=== PATIENT | male | born 1960 | race Caucasian/White ===

== ENCOUNTER → 2021-06-23 09:25 | Outpatient (BNVA) | payer OTHER, SELFPAY | PROVIDERS: Family Provider Family Medicine; PCP Registered Nurse; Visit Provider Nurse Practitioner Family | DX: R31.9 Hematuria, unspecified (principal); R19.7 Diarrhea, unspecified; Z12.5 Encounter for screening for malignant neoplasm of prostate | CPT/HCPCS: 81000; G0103 ==

== ENCOUNTER 2021-07-04 15:15 | Outpatient (CLI) | payer OTHER, SELFPAY ==
--- NOTE | 2021-07-04 15:45 | US_ITS ---
WS: [id number] RENAL ULTRASOUND HISTORY: R31.9 - Hematuria, unspecified COMPARISON: None available. TECHNIQUE: 2-D and color Doppler imaging of the kidney submitted. Right kidney: 12.6 cm x 5.2 cm x 5.9 cm. Normal size kidney with no hydronephrosis. Calcification in the lower pole measures 1.0 x 1.0 x 1.0 c m. No solid mass or cyst. Left kidney: 12.9 cm x 7.5 cm x 5.4 cm. Normal echogenicity with no hydronephrosis or mass. Aorta: Not visualized. Urinary Bladder: Normally distended bladder. Prostate gland is slightly enlarged measuring 4.5 x 5.6 x 4.0 cm. No free fluid in the pelvis. US/US renal BI* [id number] IMPRESSION: 1. Nonobstructing 1.0 cm renal calcification lower pole RIGHT kidney. 2. No hydronephrosis or solid mass.
== END 2021-07-04 15:16 | disposition home or self-care (01) ==
LOC: US 15:19
PROVIDERS: PCP Nurse Practitioner Family; Visit Provider Nurse Practitioner Family
DX: R31.9 Hematuria, unspecified (principal); N28.89 Other specified disorders of kidney and ureter
CPT/HCPCS: 76770

== ENCOUNTER → 2021-07-18 10:06 | Outpatient (BNVA) | payer OTHER, SELFPAY | PROVIDERS: PCP Nurse Practitioner Family; Visit Provider Nurse Practitioner Family | DX: R39.9 Unspecified symptoms and signs involving the genitourinary system (principal); Z02.4 Encounter for examination for driving license | CPT/HCPCS: 81000 ==

== ENCOUNTER → 2021-11-14 08:06 | Outpatient (BNVA) | payer OTHER, SELFPAY | PROVIDERS: PCP Nurse Practitioner Family; Visit Provider Nurse Practitioner Family | DX: E11.42 Type 2 diabetes mellitus with diabetic polyneuropathy (principal) | CPT/HCPCS: 80053; 80061; 82043; 83036; 83721 ==

== ENCOUNTER → 2021-12-04 09:19 | Outpatient (BNVA) | payer OTHER, SELFPAY | PROVIDERS: PCP Nurse Practitioner Family; Visit Provider Nurse Practitioner Family | DX: Z51.81 Encounter for therapeutic drug level monitoring (principal) | CPT/HCPCS: 80076 ==

== ENCOUNTER → 2022-02-07 08:39 | Outpatient (BNVA) | payer OTHER, SELFPAY | PROVIDERS: PCP Nurse Practitioner Family; Visit Provider Nurse Practitioner Family | DX: I10 Essential (primary) hypertension (principal); E11.42 Type 2 diabetes mellitus with diabetic polyneuropathy | CPT/HCPCS: 80053; 83036 ==

== ENCOUNTER → 2022-03-27 11:29 | Outpatient (BNVA) | payer OTHER, SELFPAY | PROVIDERS: PCP Nurse Practitioner Family; Visit Provider Podiatrist Foot & Ankle Surgery | DX: L98.9 Disorder of the skin and subcutaneous tissue, unspecified (principal) | CPT/HCPCS: 88304 ==

== ENCOUNTER → 2022-05-14 08:38 | Outpatient (BNVA) | payer OTHER, SELFPAY | PROVIDERS: PCP Nurse Practitioner Family; Visit Provider Nurse Practitioner Family | DX: E78.5 Hyperlipidemia, unspecified (principal); E11.9 Type 2 diabetes mellitus without complications | CPT/HCPCS: 80053; 80061; 83036 ==

== ENCOUNTER 2022-06-14 10:24 | Outpatient (CLI) | payer BC, SELFPAY ==
--- NOTE | 2022-06-14 10:43 | XR_ITS ---
WS: [email or web address] Chest 2 views, 06/14/2022 Clinical Data: R07.81 - Pleurodynia Comparison: None. Findings: No nodules, masses or effusions are seen. The heart is normal. The pulmonary vascularity is not increased. No pneumonia or pneumothorax is seen. XR/XR chest 2V* [id number] Impression: Negative chest.
== END 2022-06-14 10:25 | disposition home or self-care (01) ==
PROVIDERS: PCP Nurse Practitioner Family; Visit Provider Nurse Practitioner Family
DX: R07.81 Pleurodynia (principal); M54.9 Dorsalgia, unspecified
CPT/HCPCS: 71046; 81000

== ENCOUNTER 2022-08-15 12:40 | Outpatient (CLI) | payer BC, SELFPAY ==
--- NOTE | 2022-08-15 12:48 | XR_ITS ---
WS: [email or web address] KUB, AP view, 08/15/2022 Clinical Data: Stones Comparison: CT abdomen and pelvis, 07/04/2022. Findings: There are bilateral renal calcifications. There are clips in the right upper quadrant and also clips over the L5 vertebral body and sacrum from surgery. No abnormal intraabdominal masses are seen. There is no dilatated small bowel or evidence of obstruct ion. XR/XR KUB [id number] Impression: Bilateral renal calculi.
== END 2022-08-15 12:41 | disposition home or self-care (01) ==
PROVIDERS: PCP Family Medicine; Visit Provider Urology
DX: N20.1 Calculus of ureter (principal); N20.0 Calculus of kidney
CPT/HCPCS: 74018; 81003

== ENCOUNTER 2022-08-20 06:40 | Day surgery (SDC) | payer BC, SELFPAY ==
[2022-08-17 12:44] VITALS: BMI 32.1
[2022-08-20] VITALS (7 sets, daily range): BP systolic 139–158; BP diastolic 82–94; PULSE 56–70; RESP 12–18; TEMP 36.2–36.4; O2SAT 95–98
--- NOTE | 2022-08-20 05:21 | W.PM.OPSUD ---
Surgery/Procedure H&P Update DATE OF PROCEDURE: August 20, 2022 DATE H&P PERFORMED: 08/15/22 H&P UPDATE INFORMATION: I have reviewed H&P completed within last 30 days, I have examined patient prior to procedure, No changes to prior documentation and H&P is in [facility] [place] on date indicated CHANGES TO PREVIOUS DOCUMENTATION: Stone in roughly the same position. More easily identified on today's x-ray PLANNED PROCEDURE: Operation Date: 08/20/22 08:20 Proposed Procedures p CYSTOSCOPY LEFT STENT EXTRACORPOREAL SHOCKWAVE LITHOTRIPSY POSSIBLE RETROGRADE [id number] MODIFIER 26,N20.1(Not Applicable) - Zana Garcia MD s Ureteral Stent Placement(Left) - Zana Garcia MD s ESWL(Left) - Zana Garcia MD
--- NOTE | 2022-08-20 06:46 | XR_ITS ---
WS: [id number] Exam: XR KUB [id number] Date/Time of Exam: 08/20/2022 6:56 AM Reason For Exam: Preop left ESWL No bowel obstruction or free air. Calcifications superimpose both kidneys representing known renal st ones. There is also a 1.2 x 1 cm calcification along the left paraspinal region at about the level of the lower endplate of L3 that has proven to represent a ureteral stone as visualized on the renal co lic CT scan performed 07/04/2022. Surgical clips seen in the right abdomen and central pelvis. Bony st ructures are intact. No sign of organ enlargement. XR/XR KUB [id number] IMPRESSION: 1. Bilateral renal stones. 2. 1.2 x 1 cm left paraspinal calcification which apparently represents a known renal stone in the left ureter. 3. No acute abdominal process.
[2022-08-20 07:36] LABS: Glucose Point of Care 125 mg/dL (70-110)
[2022-08-20] MEDS: sodium chloride 0.9% 1,000 ML 30 ML IV (07:42)
--- NOTE | 2022-08-20 07:44 | P.ANESASSM_ITS ---
Pre-Anesthetic Assessment Height/Weight: Height 1.88 m Weight 113.398 kg Temp Pulse Resp BP Pulse Ox O2 Del Method 97.6 F 70 16 139/86 96 08/20/22 07:30 08/20/22 07:30 08/20/22 07:30 08/20/22 07:30 08/20/22 07:30 08/20/22 07:30 Preop Diagnosis: Left mid ureteral stone, 1 cm Operation Date: 08/20/22 08:20 Proposed Procedures p CYSTOSCOPY LEFT STENT EXTRACORPOREAL SHOCKWAVE LITHOTRIPSY POSSIBLE RETROGRADE [id number] MODIFIER 26,N20.1(Not Applicable) - Zana Garcia MD s Ureteral Stent Placement(Left) - Zana Garcia MD s ESWL(Left) - Zana Garcia MD Familial anesthetic complications: None Was Beta Dung taken within 24 hours: Yes Was Clonidine taken within 24 hours: N/A Last intake: Intake Last Liquid Date 08/19/22 Last Liquid Time 20:00 Last Solid Date 08/19/22 Last Solid Time 08:00 Social No alcohol and No tobacco Exam alert, oriented x 3, clear to auscultation bilaterally and regular rate & rhythm Airway Mallampati: Class III Dentition: other (multiple missing) CV/HEM Hypertension GI Gastroesophageal Reflux Disease Metabolic Diabetes Mellitus Anesthetic Plan ASA status: 3 Anesthesia: General Risk of > 500 ml blood loss (7ml/kg in children): No Medications/Allergies Home Medications Medication Instructions Recorded Confirmed Last Taken Type omeprazole magnesium 20 mg 20 mg PO DAILY 12/01/19 08/17/22 08/20/22 History tablet,delayed release (Prilosec OTC) Diabetic Shoes #1 ea 05/31/20 08/15/22 Unknown Rx citalopram 40 mg tablet 40 mg PO DAILY 06/23/21 08/17/22 08/19/22 History Diabetic Shoes with inserts #1 ea 03/27/22 08/15/22 Unknown Rx acetaminophen 650 mg 650 mg PO Q12H 06/14/22 08/17/22 08/17/22 History tablet,extended release (Arthritis Pain Relief (acetaminophen) ER) ibuprofen 800 mg tablet 800 mg PO BID PRN Pain 06/14/22 08/20/22 08/13/22 History allopurinol 100 mg tablet 100 mg PO DAILY #90 tabs 08/13/22 08/17/22 08/19/22 Rx diltiazem HCl 180 mg 180 mg PO DAILY #90 caps 08/13/22 08/17/22 08/19/22 Rx capsule,extended release 24 hr hydrochlorothiazide 25 mg tablet 25 mg PO DAILY #90 tabs 08/13/22 08/17/22 08/19/22 Rx metoprolol succinate 25 mg 25 mg PO BID #180 tabs 08/13/22 08/17/22 08/20/22 05:00 Rx tablet,extended release 24 hr glipizide 10 mg tablet 10 mg PO BID 08/17/22 08/17/22 08/19/22 History semaglutide 0.25 mg or 0.5 mg (2 0.25 mg SUBCUT DIRECTED 08/17/22 08/17/22 08/19/22 History mg/1.5 mL) subcutaneous pen injector ([employer]) tamsulosin 0.4 mg capsule 0.4 mg PO DAILY 08/17/22 08/17/22 08/19/22 History Allergies Allergy/AdvReac Type Severity Reaction Status Date / Time No Known Allergies Allergy Verified 08/15/22 13:43 Current Medications Generic Name Dose Route Start Last Admin Trade Name Freq PRN Reason Stop Dose Admin Sodium Chloride 1,000 mls @ 30 mls/hr 08/20/22 07:00 08/20/22 07:42 Sodium Chloride 0.9% IV 08/21/22 06:59 30 mls/hr .Q24H GINETTE Administration PFSH Anesthesia Medical History Diabetes mellitus Gout History of diverticulitis of colon Hypertension Surgical History History of cholecystectomy Family History Father , AT AGE 90 Cancer Mother , AT AGE 88 Cancer LEUKEMIA Brother Diabetes Sister Diabetes Social History Smoking and tobacco status: former smoker Alcohol intake: never Household members: spouse Marital status: Current occupational status: employed Current occupation: [employer] Anesthesia Cardiac Studies: No Data to Display
[2022-08-20 08:12] LABS: Blood Urea Nitrogen 18 mg/dL (8-23); Calcium 9.5 mg/dL (8.5-10.5); Carbon Dioxide 24 mmol/L (22-29); Chloride 97 mmol/L (98-107); Glomerular Filtration Rate 85.2 mL/min (90-130); Glucose 127 mg/dL (65-115); Osmolality Calculated 277 mOsm/kg (285-295); Sodium 132 mmol/L (136-145)
[2022-08-20 08:13] LABS: Anion Gap 14.7 (5-19); Potassium 3.7 mmol/L (3.5-5.1)
--- NOTE | 2022-08-20 08:23 | PM.OP ---
Operative Report Date of procedure: August 20, 2022 Pre-op diagnosis: Left mid ureteral stone, 1 cm Post-op diagnosis: Left mid ureteral stone, 1 cm Procedure done: 1. Cystoscopy, left ureteral stent placement 2. Extracorporeal shockwave lithotripsy left mid ureteral stone Implants: Left ureteral stent Specimens removed/disposition: None Pathology: None Surgeon: Jose Cosmetic Dentist: Steve: Lithotripsy coil repair technician Estimated blood loss: None Urine output: Not measured Complications: None Findings: Anesthesia: General Condition: Stable Disposition: PACU Intraoperative findings: 6 [place] Island[place] by 30 cm double-pigtail stent without string Good change in the stones appearance after 2500 shocks Brief History: David is a very pleasant 62-year-old white male with a history of multiple stones requiring intervention historically. Recently presented with left renal colicky symptoms and was found to have a 1 cm stone in the left mid ureter that had not progressed from the time of original diagnosis to follow-up in the clinic. Symptomatically he was doing reasonably well. Ultimately he elected to proceed with intervention for the stone. Procedure: After routine preoperative evaluation examination and obtaining of informed consent he was taken to the operating suite on 08/20/2022 where general anesthesia was administered without difficulty. Appropriate timeout was performed, SCDs confirmed to be functioning, preoperative antibiotics administered, beta-alexandro protocol confirmed. Prepped and draped in usual sterile fashion in dorsolithotomy position paying careful attention to avoiding pressure points. 21 [place] Island[place] cystoscope with 30 degree lens was introduced into the urethra meatus and advanced into the bladder under videoscopy. Bladder was systematically examined and found to be within normal limits. Flexible tip guidewire was then advanced up the left ureter bypassing the stone. The 6 [place] Island[place] by 30 cm double-pigtail stent was advanced over the guidewire through the cystoscope into appropriate position as confirmed via fluoroscopy and cystoscopy. Repositioned in supine position paying careful attention to avoiding pressure points. Stone was brought into the focal point utilizing biplanar fluoroscopy with the shock head positioned posteriorly. Shockwave was initiated at a rate of 60 and advanced to 70 after significant change had occurred Stone was easily focused upon. By the completion of procedure there was dramatic change Stent was left indwelling at the completion of the procedure. PLANS: 1. Anticipate discharge from outpatient surgery 2. Follow-up next week with KUB
[2022-08-20] MEDS: levofloxacin-dextrose 5 % 500 MG/100 ML PREMIX 100 MG IV (08:38)
--- NOTE | 2022-08-20 10:15 | P.PCN_ITS ---
PACU note Narrative: VSS, Good respiratory effort, report to BIOSTATISTICS TEACHER Exam: awake
--- NOTE | 2022-08-20 10:15 | PM.PACU ---
PACU note Narrative: VSS, Good respiratory effort, report to SYSTEM ANALYST Exam: awake
[2022-08-20] MEDS: ibuprofen 800 mg tablet PO (10:53)
--- NOTE | 2022-08-20 13:22 | ANE.PACU2 ---
Inpatient post-anesthesia follow up: Airway intact: Yes Vital signs: Temperature 97.3 F Pulse Rate 57 Respiratory Rate 18 Blood Pressure 148/85 Pulse Oximetry 95 Oxygen Delivery Me thod Room Air Oxygen Flow Rate Fraction of Inspir ed Oxygen Hydration adequate: Yes Nausea and vomiting: No Pain level: 1 Mental status: Baseline
== END 2022-08-20 11:20 | disposition home or self-care (01) ==
PROVIDERS: Anesthesiology; PCP Family Medicine; Visit Provider Urology
PROC: 0TJB8ZZ Inspection of Bladder, Via Natural or Artificial Opening Endoscopic (ICD-10-PCS; CPT 52000; principal; 2022-08-20 08:10)
PROC: (CPT 50605; 2022-08-20 08:10)
PROC: (CPT 50590; 2022-08-20 08:10)
DX: N20.1 Calculus of ureter (principal); I10 Essential (primary) hypertension; K21.9 Gastro-esophageal reflux disease without esophagitis; E11.9 Type 2 diabetes mellitus without complications; Z87.891 Personal history of nicotine dependence
CPT/HCPCS: 52356; 36415; 36416; 74018; 80048; 82962; C2625; J1100; J1956; J2405; J2704; J2710; J3010; J3490; J7030

== ENCOUNTER 2022-08-29 14:15 | Outpatient (CLI) | payer BC, SELFPAY ==
--- NOTE | 2022-08-29 14:24 | XRR_ITS ---
PROCEDURE INFORMATION: Exam: XR Abdomen Exam date and time: 08/29/2022 2:28 PM Age: 62 years old Clinical indication: Condition or disease; Kidney or ureter condition; Calculus (stone) in kidney; Prior surgery; Surgery type: Colon, stent; Additional info: Stones, yandyb tammy 08/29/22 @ 2:30 pm appt to follow TECHNIQUE: Imaging protocol: Radiologic exam of the abdomen. Views: Frontal supine view of the abdomen. 1 View. COMPARISON: CR XR KUB [id number] 08/20/2022 6:54 AM FINDINGS: Tubes, catheters and devices: A left ureteral stent is in place. The proximal pigtail projects over the left renal collecting system. The distal pigtail is in the bladder. Gastrointestinal tract: Retained fecal material is noted in the colon. Intraperitoneal space: Postsurgical changes are seen in the right and central lower abdomen. No free air detected radiographically. Organs: Right nephrolithiasis is again noted. There is suspected persistent left nephrolithiasis, as well. Gas may be present in the left renal collecting system versus overlying bowel. A previously described left paraspinal calcification, presumed ureterolithiasis, is no longer detected in this location. Can not exclude possible migration of this calculus, or portion of this calculus, into the distal left ureter. Bones/joints: Unremarkable. XR/XR KUB [id number] IMPRESSION: 1. Left ureteral stent. 2. Previously described left paraspinal calcification, presumed ureterolithiasis, is no longer detected in this location. Cannot exclude possible migration of this calculus, or portion of this calculus, into the distal left ureter.
== END 2022-08-29 14:16 | disposition home or self-care (01) ==
PROVIDERS: PCP Family Medicine; Visit Provider Urology
DX: N20.1 Calculus of ureter (principal)
CPT/HCPCS: 74018; 82365; 88300

== ENCOUNTER 2023-05-15 08:39 | Emergency (ER) | payer BC, SELFPAY ==
[2023-05-15 08:42] VITALS: BP 169/97; PULSE 65; RESP 18; TEMP 36.4; O2SAT 97; BMI 33.3
[2023-05-15 08:45] VITALS: BP 169/97; RESP 18; O2SAT 97
--- NOTE | 2023-05-15 08:51 | ED_ITS ---
HPI - SOB/Dyspnea General: Chief Complaint: Shortness of Breath/Dyspnea Stated Complaint: SOB / weakness Time Seen by Provider: 05/15/23 08:40 Source: patient Mode of arrival: ambulatory Limitations: no limitations History of Present Illness: HPI Narrative: Patient is a 62-year-old male with past medical history of hypertension, diabetes, obstructive sleep apnea, and DVT who presents to the emergency room complaining of shortness of breath onset 2-3 weeks. Patient states he was seen at [facility] on Saturday for the same symptoms. He states he works for a [employer] and is active approximately 50-60 hours/week. He reports a history of sleep apnea where he uses a CPAP machine at night. He says that his shortness of breath is worse at night when he does not wear his CPAP machine, where he has awoken suddenly with shortness of breath. However, he denies specifically being short of breath while laying flat. Exerting himself causes him to get short of breath during the day, and he states that rest alleviates the respiratory issues. Other than his CPAP machine, he has not tried anything else to alleviate his shortness of breath, and he is not on oxygen and denies any history of COPD (although does state he used to smoke years ago and this could be a possibility) or asthma. He states that he was recently told by his primary care provider that he might have congestive heart failure , and review of his medications reveals that he is on hydrochlorothiazide. Workup on Saturday was reportedly negative including, he reports, a negative chest x-ray, negative head CT, negative abdominal CT (he was found to have an incidental rental mass and has MRI scheduled for this tomorrow). Additionally to his weakness, he states that he has felt more bloated over the past couple weeks. MD elicited complaint: shortness of breath Pertinent past history: diabetes and DVT Onset (ago): week(s) Timing: intermittent Severity: moderate Exacerbating factors: exertion Relieving factors: rest Known history of: diabetes, DVT and other (Obstructive sleep apnea) Associated symptoms: Deny abdominal pain, chest congestion, chest pain, dizziness, extremity pain, fever(s), hemoptysis, lightheadedness, nausea, orthop hadley, palpitations, syncope or vomiting Treatment prior to arrival: none Related Data: Home oxygen amount: none Review of Systems Const: Reports: other (generalized weakness); Denies: fever(s), chills, body aches, fatigue or malaise Eyes: Denies: change in vision, blurry vision, photophobia, floaters or seeing flashes Card: Denies: chest pain, palpitations, irregular heart rhythm, edema, swelling of feet/ankles, lightheadedness, syncope, pre-syncope, dyspnea on exertion, orthopnea, leg pain with exertion or acrocyanosis Resp: Reports: dyspnea; Denies: productive cough, non-productive cough, wheezing, stridor, pain on inspiration, change in phlegm color, hemoptysis or chest congestion GI: Reports: other (reports abdominal bloating); Denies: abdominal pain, nausea, vomiting, heartburn or diarrhea : Denies: flank pain, difficulty urinating, dysuria, urinary frequency, urinary urgency or urinary hesitancy Musc: Denies: neck pain, back pain, extremity pain, extremity swelling or joint pain Skin/Breast: Denies: rash Neuro: Denies: headache(s), numbness in extremities, weakness in extremities, sensory changes or dizziness PFSH ED PFSH: Medical History Diabetes mellitus Gout History of diverticulitis of colon Hypertension Surgical History History of cholecystectomy Family History Father , AT AGE 90 Cancer Mother , AT AGE 88 Cancer LEUKEMIA Brother Diabetes Sister Diabetes Social History Smoking and tobacco status: former smoker Alcohol intake: never Household members: spouse Marital status: Current occupational status: employed Current occupation: [employer] Physical Exam Const: COMMON NORMALS: no acute distress, average body habitus, patient oriented x3, no limitations, healthy appearing, alert and well nourished GENERAL APPEARANCE: cooperative ORIENTATION/CONSCIOUSNESS: Yes awake, Yes oriented to person, Yes oriented to place and Yes oriented to time HENMT: COMMON NORMALS: normocephalic and atraumatic HEAD & SCALP: normal to inspection, normocephalic and atraumatic FACE & SINUS: normal facial exam Eye: COMMON NORMALS: no scleral icterus GENERAL EYE: appearance normal, both eyes and all related structures Neck/C-Spine: COMMON NORMALS: full ROM, no lymphadenopathy, supple, no meningeal signs and no JVD Chest: COMMONS NORMALS: normal inspection of the chest and normal palpation of entire chest wall Resp: COMMON NORMALS: normal respiratory effort and clear to auscultation bilaterally AUSCULTATION: clear to auscultation bilaterally Cardio: COMMON NORMALS: no JVD, regular rate and regular rhythm RATE: regular rate RHYTHM: regular rhythm GI: COMMON NORMALS: Normal to inspection, nondistended, normoactive bowel sounds present, Soft to palpation, non-tender, No hepatosplenomegaly present and no masses INSPECTION: Yes normal to inspection AUSCULTATION: Yes normoactive bowel sounds PALPATION: Yes Soft to palpation, No Tenderness to palpation present (GI), No Guarding due to palpation present (GI), No Rigid due to palpation and Yes No hepatosplenomegaly present OTHER: no obvious abdominal distention noted; no ascites : COMMON NORMALS: Yes no CVA tenderness BLADDER/KIDNEY EXAM: Yes no CVA tenderness Back/Pelvis: COMMON NORMALS: no CVA tenderness and thoracic and lumbar spine normal to inspection Extremity: COMMON NORMALS: normal to inspection, capillary refill normal, no joint enlargement, no clubbing, cyanosis or edema, no calf tenderness and no pedal edema GENERAL: Yes normal exam except as noted Neuro: TOYIN COMA SCALE: document GCS findings Cassoday coma scale eye opening: Spontaneous Cassoday coma scale verbal response: Orientated Cassoday coma scale motor response: Obey commands Cassoday coma scale total score: 15 COMMON NORMALS: patient oriented x3 SENSORIUM/ORIENTATION: Yes alert, Yes oriented to person, Yes oriented to place and Yes oriented to time MENINGEAL SIGNS: Yes no meningeal signs Skin: COMMON NORMALS: no rashes or lesions noted GENERAL SKIN EXAM: no rashes or lesions noted Course Vital Signs: Vital signs: Vital Signs Temperature 97.6 F 05/15/23 08:42 Pulse Rate 78 05/15/23 10:23 Respiratory Rate 16 05/15/23 10:23 Blood Pressure 169/97 05/15/23 08:45 Pulse Oximetry 97 05/15/23 10:23 Oxygen Delivery Me thod Room Air 05/15/23 08:42 MDM - SOB/Dyspnea Medical Decision Making Patient is a nice 62-year-old male who presents to ED today with a complaint of dyspnea upon exertion over the past 2 to 3 weeks. It has never been accompanied with chest pain. Patient was seen at [facility] a few days ago and had an extensive workup there. Records from their facility were obtained. He had negative troponins and a negative D-dimer there as well as a normal CXR and EKG. He had a CT of his abdomen and pelvis which showed a renal mass. He was subsequently ordered an MRI that is scheduled for tomorrow for further evaluati on of this. On exam today patient appears in no acute distress. His vital signs are stable. Blood work again including troponin and D-dimer are negative. His CXR is normal. He has an outpatient stress test scheduled for 05/21. Discussed the possibility of potentially getting outpatient PFTs performed as patient is a multi decade long smoker. He quit approximately 5 years ago. Certainly could be undiagnosed COPD. We also discussed possibly obtaining echocardiogram again as an outpatient. His BNP was normal today. This county also tested the patient for COVID which was negative. At this time patient is stable for discharge from an emergency standpoint. Return ED precautions given. Lab Data 05/15/23 09:03 05/15/23 09:03 Labs/Radiology: Laboratory Results WBC 5.3 10^3/uL (4.0-10.0) 05/15/23 09:03 RBC 4.37 10^6/uL (4.1-5.3) 05/15/23 09:03 Hgb 13.6 g/dL (11.7-16.6) 05/15/23 09:03 Hct 39.4 % (42.0-52.0) L 05/15/23 09:03 MCV 90.2 fl (80-94) 05/15/23 09:03 MCH 31.1 pg (28.0-34.0) 05/15/23 09:03 MCHC 34.5 g/dL (30.0-36.0) 05/15/23 09:03 RDW 12.5 % (12.1-15.1) 05/15/23 09:03 Plt Count 238 10^3/cmm (130-400) 05/15/23 09:03 MPV 9.6 fL (7.4-10.4) 05/15/23 09:03 Neut % (Auto) 57.6 % 05/15/23 09:03 Lymph % (Auto) 29.1 % 05/15/23 09:03 Trinity % (Auto) 9.3 % 05/15/23 09:03 Eos % (Auto) 3.0 % 05/15/23 09:03 Baso % (Auto) 0.6 % 05/15/23 09:03 Neut # (Auto) 3.02 10^3/uL (1.8-7.7) 05/15/23 09:03 Lymph # (Auto) 1.5 10^3/uL (0.8-4.8) 05/15/23 09:03 Trinity # (Auto) 0.5 10^3/uL (0.2-0.9) 05/15/23 09:03 Eos # (Auto) 0.2 10^3/uL (0.0-0.8) 05/15/23 09:03 Baso # (Auto) 0.0 10^3/uL (0.0-0.1) 05/15/23 09:03 Nucleated RBC % (auto) 0 % 05/15/23 09:03 Nucleated RBCs # 0.0 /100WBC 05/15/23 09:03 D-Dimer <= 0.27 ug/mIFEU (0-0.59) 05/15/23 09:03 Sodium 138 mmol/L (136-145) 05/15/23 09:03 Potassium 4.1 mmol/L (3.5-5.1) 05/15/23 09:03 Chloride 101 mmol/L (98-107) 05/15/23 09:03 Carbon Dioxide 24 mmol/L (22-29) 05/15/23 09:03 Anion Gap 17.1 (5-19) 05/15/23 09:03 BUN 19 mg/dL (8-23) 05/15/23 09:03 Creatinine 0.8 mg/dL (0.7-1.2) 05/15/23 09:03 GFR Calculation 97.6 mL/min (90-130) 05/15/23 09:03 Glucose 193 mg/dL (65-115) H 05/15/23 09:03 Calculated Osmolality 294 mOsm/kg (285-295) 05/15/23 09:03 Calcium 9.5 mg/dL (8.5-10.5) 05/15/23 09:03 Total Bilirubin 0.4 mg/dL (0.15-1.2) 05/15/23 09:03 AST 26 U/L (0-40) 05/15/23 09:03 ALT 44 U/L (0-41) H 05/15/23 09:03 Alkaline Phosphatase 69 U/L (40-130) 05/15/23 09:03 Troponin T Baseline 7 ng/L (0-15) 05/15/23 09:03 NT-Pro-B Natriuret Pep 38 pg/mL (0-125) 05/15/23 09:03 Total Protein 7.0 g/dL (6.6-8.7) 05/15/23 09:03 Albumin 4.6 g/dL (3.5-5.2) 05/15/23 09:03 Globulin 2.4 g/dL (1.3-4.6) 05/15/23 09:03 Discharge Plan Discharge Patient Disposition: Home Clinical Impression: Dyspnea Qualifiers: Dyspnea type: dyspnea on exertion Qualified Code(s): R06.09 - Other forms of dyspnea Condition: Stable Prescriptions: New Advair Diskus 250-50 mcg/dose blister with device 1 inh inhalation BID Qty: 60 0RF No Action Prilosec OTC 20 mg tablet,delayed release (DR/EC) 20 mg PO DAILY (DME) Diabetic Shoes Qty: 1 0RF Rx Instructions: As directed citalopram 40 mg tablet 40 mg PO DAILY (DME) Diabetic Shoes with inserts See Rx Instructions .Route .MEDSUPPLY Qty: 1 3RF Rx Instructions: As directed ibuprofen 800 mg tablet 800 mg PO BID PRN (Reason: Pain) acetaminophen [Arthritis Pain Relief (acetam)] 650 mg tablet extended release 650 mg PO Q12H PRN (Reason: Pain) tamsulosin 0.4 mg capsule 0.4 mg PO DAILY Rx Instructions: TAKE 1 CAPSULE(0.4 MG) BY MOUTH DAILY metoprolol succinate 50 mg tablet extended release 24 hr 50 mg PO DAILY Co Q-10 10 mg Capsule 10 mg PO DAILY Rx Instructions: WITH PRAVASTATIN pravastatin 10 mg tablet 10 mg PO BEDTIME Rx Instructions: TAKE WITH CO Q 10 metformin 1,000 mg tablet See Rx Instructions .ROUTE .COMPLEX Rx Instructions: TAKE 2 TABLETS IN THE MORNING AND 1 TABLET IN THE EVENING. tizanidine 4 mg capsule 4 mg PO DAILY PRN (Reason: Spasms) hydrochlorothiazide 12.5 mg tablet 12.5 mg PO DAILY diltiazem HCl 180 mg capsule,extended release 24hr 180 mg PO DAILY glipizide 10 mg tablet 10 mg PO DAILY Discharge Orders: Discharge ED (Routine); Ordered 05/15/23 Ordered By: Maira Pedraza Referrals: Ashanti Ramirez [Primary Care Provider] - Coding Level of Care Code ED Patient Care Assistant for Mariaelena Madrigal
--- NOTE | 2023-05-15 08:56 | XR_ITS ---
WS: [id number] XR chest 1V portable [id number] REASON FOR EXAM: SOB FINDINGS: Chest is unchanged compared to 06/14/2022. The heart and mediastinum are within normal limits. Calcified granulomas disease in both hemithoraces. No focal or diffuse pulmonary parenchymal or pleural abnormality. Moderate degenerative spondylosis in the mid and lower thoracic spine. IMPRESSION: No acute chest abnormality.
--- NOTE | 2023-05-15 09:06 | ECG_ITS ---
[facility] Test Date: 2023-05-15 Pat Name: David Menard Department: Room: Gender: Male Tea Bag Packer: : 1960 Requested By: Maira Pedraza Order Number: [id number] Ramesh MD: Eros Le M.D. Measurements Intervals [place] Rate: 63 P: 35 ME: 204 QRS: -18 QRSD: 96 T: -7 QT: 428 QTc: 440 Interpretive Statements SINUS RHYTHM VOLTAGE CRITERIA FOR LVH [MEETS CRITERIA IN ONE OF: R(aVL), S(V1), R(V5), R(V5/V6)+S(V1)] No previous ECG available for comparison Electronically Signed On 05-15-2023 16:47:07 CDT by Eros Le M.D. [id number]
[2023-05-15 09:25] LABS: Basophils % 0.6 %; Eosinophils # 0.2 10^3/uL (0.0-0.8); Hematocrit 39.4 % (42.0-52.0); Hemoglobin 13.6 g/dL (11.7-16.6); Lymphocytes # 1.5 10^3/uL (0.8-4.8); Lymphocytes % 29.1 %; Mean Corpuscular HGB Conc 34.5 g/dL (30.0-36.0); Mean Corpuscular Hemoglobin 31.1 pg (28.0-34.0); Mean Corpuscular Volume 90.2 fl (80-94); Mean Platelet Volume 9.6 fL (7.4-10.4); Monocytes # 0.5 10^3/uL (0.2-0.9); Monocytes % 9.3 %; Neutrophils # 3.02 10^3/uL (1.8-7.7); Neutrophils % 57.6 %; Nucleated Red Blood Cells % 0 %; Platelet Count 238 10^3/cmm (130-400); Red Blood Count 4.37 10^6/uL (4.1-5.3); Red Cell Distribution Width 12.5 % (12.1-15.1); White Blood Count 5.3 10^3/uL (4.0-10.0)
[2023-05-15 09:29] LABS: D Dimer <= 0.27 ug/mIFEU (0-0.59)
[2023-05-15 09:43] LABS: Troponin(5th) Baseline 7 ng/L (0-15)
[2023-05-15 09:46] LABS: Alanine Aminotransferase 44 U/L (0-41); Albumin Level 4.6 g/dL (3.5-5.2); Alkaline Phosphatase 69 U/L (40-130); Anion Gap 17.1 (5-19); Aspartate Amino Transferase 26 U/L (0-40); Blood Urea Nitrogen 19 mg/dL (8-23); Calcium 9.5 mg/dL (8.5-10.5); Carbon Dioxide 24 mmol/L (22-29); Chloride 101 mmol/L (98-107); Creatinine Clr Calc Pharmacy 128.9932; Globulin 2.4 g/dL (1.3-4.6); Glomerular Filtration Rate 97.6 mL/min (90-130); Glucose 193 mg/dL (65-115); NT Pro B Type Natriuretic Pept 38 pg/mL (0-125); Osmolality Calculated 294 mOsm/kg (285-295); Potassium 4.1 mmol/L (3.5-5.1); Sodium 138 mmol/L (136-145); Total Bilirubin 0.4 mg/dL (0.15-1.2)
[2023-05-15 09:54] VITALS: RESP 16; O2SAT 96
[2023-05-15 10:23] VITALS: PULSE 78; RESP 16; O2SAT 97
== END 2023-05-15 10:23 | disposition home or self-care (01) ==
PROVIDERS: Emergency Provider Physician Assistant; PCP Registered Nurse
DX: R06.09 Other forms of dyspnea (principal); E11.9 Type 2 diabetes mellitus without complications; I10 Essential (primary) hypertension; G47.33 Obstructive sleep apnea (adult) (pediatric); Z86.718 Personal history of other venous thrombosis and embolism; Z87.891 Personal history of nicotine dependence; Z79.84 Long term (current) use of oral hypoglycemic drugs
CPT/HCPCS: 36415; 71045; 80053; 83880; 84484; 85025; 85378; 93005; 99285

== ENCOUNTER 2023-05-21 08:48 | Outpatient (CLI) | payer BC, SELFPAY ==
--- NOTE | 2023-05-21 08:58 | ECG_ITS ---
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 Interpretive Statements NAME OF STUDY: LEXISCAN SESTAMIBI STRESS TEST INDICATION: Shortness of Breath on exertion PROCEDURE: At the baseline, the blood pressure was 180/102 mmHg with a heart rate of 70 BPM. The electrocardiogram showed sinus rhythm, normal axis with nonspecific T wave inversion in lead III. The Lexiscan was infused over a period of 20 seconds. A total of 0.4 milligrams of Lexiscan was infused. The stress phase was continued for a total of 5 minutes. Heart rate at the end of the stress phase was 28 bpm with a blood pressure 184/93 mmHg. The EKG at the peak infusion revealed no significant ST-T wave changes. Sestamibi was injected 20 seconds after the Lexiscan infusion. Blood pressure at the end of the recovery phase was 174 /95 mm Hg with a heart rate of 78 beats per minute. CONCLUSION: 1. Normal EKG response to LexiScan infusion. 2. No LexiScan induced chest pain or cardiac arrhythmia. 3. Normal blood pressure and heart rate response. 4. Sestamibi/sestamibi perfusion scan pending; see separate report. Electronically Signed On 05-27-2023 17:23:27 CDT by Kell Fam M.D. [id number]
--- NOTE | 2023-05-21 08:58 | NMCV_ITS ---
NM sawyer perf SPECT r/s* [id number] David Menard Age: 62 Gender: M : 1960 Exam Date: 05/21/2023 10:12 Ordering Phys: Ashanti Ramirez Technologist: EBONY Feldman Exam Location: [facility] Indications: SHORTNESS OF BREATH, ATHEROSCLEROTIC HEART DISEASE STRESS TEST Please see separate stress test report in [facility] for full findings IMAGE PROTOCOL Rest/Stress 1 Lexiscan Day Radiopharmaceutical Dose (mCi) Administration Site Administered by Rest: Tc-99m 10.7 IV EBONY Feldman Sestamibi Stress:Tc-99m 33.0 IV EBONY Bolanos Sestamibi Rest: 21-May-2023 60 Discovery 630 Stress: 21-May-2023 30 Discovery 630 0.4mg Lexiscan. Supine position only as patient was unable to lay prone. SPECT RESULTS Technical Quality: Excellent Raw Data Analysis: Normal Image Corrections: No attenuation or motion correction applied Summed Stress Score: 1 Summed Rest Score: 0 Summed Difference Score: 1 PERFUSION FINDINGS SPECT images demonstrate homogeneous tracer distribution throughout the myocardium. FUNCTIONAL RESULTS (calculated via Gated SPECT) Stress Image LV EF (%): 61 Stress EDV (mL):122 TID: 1.01 Stress ESV (mL):47 FUNCTIONAL FINDINGS: The left ventricle is normal in size. Transient Ischemia Dilatation of 1. The left ventricular ejection fraction is normal with a value of 61%. There is normal left ventricular wall thickening. IMPRESSIONS 1. Myocardial perfusion imaging is normal. 2. Overall left ventricular systolic function is normal without regional wall motion abnormalities, LVEF=61%. 3. EKG portion of the study will be reported separately. 4. Scan indicates low risk for cardiac events. Kell Fam MD (Electronically Signed) Final Date: 25 May 2023 16:32 S
[2023-05-21 09:12] VITALS: BMI 33.3
[2023-05-21] MEDS: regadenoson 0.4 Mg/5 ml Syringe IVP (10:41)
[2023-05-21 10:56] VITALS: BP 183/95; PULSE 84
== END 2023-05-21 08:49 | disposition home or self-care (01) ==
PROVIDERS: PCP Registered Nurse; Visit Provider Registered Nurse
DX: R06.02 Shortness of breath (principal); I25.10 Atherosclerotic heart disease of native coronary artery without angina pectoris
CPT/HCPCS: 36415; 78452; 93017; 96374; A9500; J2785

== ENCOUNTER → 2023-06-11 13:57 | Outpatient (BNVA) | payer BC, SELFPAY | PROVIDERS: PCP Registered Nurse; Visit Provider Internal Medicine Pulmonary Disease | DX: J30.2 Other seasonal allergic rhinitis (principal); R06.02 Shortness of breath | CPT/HCPCS: 82785; 85378; 85651; 86003; 86140 ==

== ENCOUNTER 2023-06-27 12:14 | Outpatient (CLI) | payer BC, SELFPAY ==
--- NOTE | 2023-06-27 12:45 | USCV_ITS ---
David Menard Age: 63 Gender: M : 1960 Exam Date: 06/27/2023 13:07 Ordering Phys: Renny Zacarias MD Technologist: Jolie Barkley Exam Location: [facility] [place] Indication: SOB BP: 173 / 80 HR: 64 Rhythm: Sinus Technical Quality: Adequate MEASUREMENTS (Male / Female) Normal Values 2D ECHO LV Diastolic Diameter PLAX 4.2 cm 4.2 - 5.9 / 3.9 - 5.3 cm LV Systolic Diameter PLAX 3.5 cm IVS Diastolic Thickness 1.8 cm 0.6 - 1.0 / 0.6 - 0.9 cm IVS Systolic Thickness 2.5 cm LVPW Diastolic Thickness 1.5 cm 0.6 - 1.0 / 0.6 - 0.9 cm LVPW Systolic Thickness 1.2 cm LVOT Diameter 2.1 cm LV Ejection Fraction 2D Teich 34.8 % LV Ejection Fraction MOD 2C 38.8 % LV Ejection Fraction 2C AL 41.1 % LA Diameter 3.3 cm LA Width 4.0 cm LA Height 5.8 cm RA Width 4.0 cm RA Height 4.6 cm Aorta at Sinotubular Diameter 3.3 cm M-MODE Aortic Annulus Diameter 3.4 cm LA Ao Ratio MM 1.1 MV E Point Septal Separation 0.6 cm DOPPLER AV Peak Velocity 127.0 cm/s LVOT Peak Velocity 131.0 cm/s AV Area Cont Eq vti 3.0 cm squared AV Area Cont Eq pk 3.6 cm squared MV Peak Velocity 106.0 cm/s MV Area PHT 2.8 cm squared Mitral E to A Ratio 0.7 MV E' Velocity 36.0 cm/s Mitral E to MV E' Ratio 7.5 Mitral E to LV E' Lateral Ratio 5.8 Mitral E to LV E' Septal Ratio 11.1 TR Peak Velocity 89.8 cm/s TR Peak Gradient 3.2 mmHg Right Atrial Pressure 5.0 mmHg Pulmonary Artery Systolic Pressu 8.2 mmHg PV Peak Velocity 110.0 cm/s RV Acceleration Time 0.2 s RV Ejection Time 0.3 s RV AcT/ET 0.5 FINDINGS Left Ventricle Normal left ventricular size and systolic function, EF 55 %. No regional wall motion abnormalities. Grade I/IV diastolic dysfunction (abnormal relaxation filling pattern), normal to mildly elevated filling pressures. Right Ventricle The right ventricle is normal in size and function. Right Atrium The right atrium is normal in size. Left Atrium Mildly increased left atrial size. Mitral Valve Trace mitral valve regurgitation. Aortic Valve Thickened aortic valve. Tricuspid Valve Trace tricuspid valve regurgitation. Estimated pulmonary artery peak systolic pressure within normal limits Pulmonic Valve Structurally normal pulmonic valve without significant stenosis. There is no pulmonic regurgitation. Pericardium Normal pericardium without effusion. Aorta Normal ascending aorta dimension. IVC The inferior vena cava appears normal. CONCLUSIONS Normal left ventricular size and systolic function, EF 55 %. No regional wall motion abnormalities. Grade I/IV diastolic dysfunction (abnormal relaxation filling pattern), normal to mildly elevated filling . Mildly increased left atrial size. Trace mitral valve regurgitation. Thickened aortic valve. Trace tricuspid valve regurgitation. Estimated pulmonary artery peak systolic pressure within normal limits. There is no pericardial effusion. No similar previous studies are available for comparison Dr Soledad Adair MD [facility] (Electronically Signed) Final Date: 27 June 2023 16:35 S
== END 2023-06-27 12:15 | disposition home or self-care (01) ==
PROVIDERS: PCP Family Medicine; Visit Provider Internal Medicine Pulmonary Disease
DX: I08.3 Combined rheumatic disorders of mitral, aortic and tricuspid valves (principal); R06.02 Shortness of breath
CPT/HCPCS: 93306

== ENCOUNTER 2023-07-09 06:59 | Outpatient (CLI) | payer BC, SELFPAY | END 2023-07-09 07:00 | disposition home or self-care (01) | LOC: RT 06:59 | PROVIDERS: PCP Family Medicine; Visit Provider Internal Medicine Pulmonary Disease | DX: R06.02 Shortness of breath (principal) | CPT/HCPCS: 94010; 94618; 94726; 94729 ==

== ENCOUNTER → 2024-11-18 11:08 | Outpatient (BNVA) | payer MEDICARE, OTHER, SELFPAY | PROVIDERS: PCP Family Medicine; Visit Provider Podiatrist Foot & Ankle Surgery | DX: E11.42 Type 2 diabetes mellitus with diabetic polyneuropathy (principal); E11.8 Type 2 diabetes mellitus with unspecified complications; M20.22 Hallux rigidus, left foot; M21.41 Flat foot [pes planus] (acquired), right foot; M21.42 Flat foot [pes planus] (acquired), left foot; L81.9 Disorder of pigmentation, unspecified; Z79.84 Long term (current) use of oral hypoglycemic drugs | CPT/HCPCS: 99213 ==

== ENCOUNTER → 2025-05-24 10:19 | Outpatient (BNVA) | payer MEDICARE, OTHER, SELFPAY | PROVIDERS: PCP Registered Nurse; Visit Provider Registered Nurse | DX: E11.9 Type 2 diabetes mellitus without complications (principal) | CPT/HCPCS: 80053; 80061; 81000; 82607; 83036; 85025 ==

== ENCOUNTER 2025-05-31 09:09 | Outpatient (CLI) | payer MEDICARE, SELFPAY ==
--- NOTE | 2025-05-31 09:45 | CT_ITS ---
WS: [id number] LDCT LUNG CANCER SCREENING HISTORY: Z87.891 - Personal history of nicotine dependence TECHNIQUE: Axial imaging performed from the apices to 1 cm below the costophrenic angles. Coronal and sagittal reformats are submitted with axial MIP series. All CT scans at [facility] use at least one of these dose optimization techniques: automated exposure control; mA and/or kV adjustment per patient size (includes targeted exams where dose is matched to clinical indication); or iterative reconstruction. DLP: 154.09 mGy.cm DIvol: Mean CTDIvol: 3.50 (mGy) COMPARISON: None available. Diagnostic quality: Satisfactory Lungs: Lungs are normally expanded. No pulmonary mass or nodule. No endobronchial lesions. Heart: Normal size heart with no pericardial effusion.. Moderate coronary artery calcifications. Greater deposition of calcification in the LEFT anterior descending coronary artery. Other findings: Mild atherosclerosis aorta. Normal size pulmonary artery. Small mediastinal and hilar lymph nodes. Small hiatal hernia. Prior cholecystectomy. No adrenal mass. CT/CT lung screening [id number] IMPRESSION: LUNG-RADS: 1-Negative FOLLOW UP: 12 Month: Continue annual screening with LDCT OTHER FINDINGS (S MODIFIER): None.
== END 2025-05-31 09:10 | disposition home or self-care (01) ==
LOC: RAD 09:10
PROVIDERS: PCP Registered Nurse; Visit Provider Registered Nurse
DX: Z12.2 Encounter for screening for malignant neoplasm of respiratory organs (principal); Z87.891 Personal history of nicotine dependence
CPT/HCPCS: 71271

== ENCOUNTER 2025-06-21 06:11 | Outpatient (CLI) | payer MEDICARE, OTHER, SELFPAY ==
--- NOTE | 2025-06-21 07:00 | USCV_ITS ---
David Menard Age: 65 Gender: M : 1960 Exam Date: 06/21/2025 06:55 Ordering Phys: Montez RamirezP PUMPMAN Technologist: Exam Location[place] [facility] [place] Indication: sob cp BP: 145 / 85 HR: 60 Rhythm: Sinus Technical Quality: Adequate MEASUREMENTS (Male / Female) Normal Values 2D ECHO LV Diastolic Diameter PLAX 4.6 cm 4.2 - 5.9 / 3.9 - 5.3 cm IVS Diastolic Thickness 1.6 cm 0.6 - 1.0 / 0.6 - 0.9 cm IVS Systolic Thickness 1.5 cm LVPW Diastolic Thickness 1.4 cm 0.6 - 1.0 / 0.6 - 0.9 cm LVPW Systolic Thickness 2.1 cm LVOT Diameter 2.1 cm LV Ejection Fraction 2D Teich 61.1 % LV Ejection Fraction MOD 4C 64.1 % LV Ejection Fraction MOD 2C 75.5 % LV Ejection Fraction 2C AL 75.5 % LA Diameter 4.6 cm RA Systolic Volume 4C AL 60.1 ml RA Systolic Volume 4C MOD 57.8 ml LA Sys Volume AL 117.5 cm cubed LA Sys Volume Index AL 44.9 cm cubed/m squared Aorta at Sinotubular Diameter 3.4 cm M-MODE LA Ao Ratio MM 1.3 AV Cusp Separation MM 2.2 cm DOPPLER AV Peak Velocity 131.0 cm/s LVOT Peak Velocity 100.0 cm/s AV Area Cont Eq vti 2.8 cm squared AV Area Cont Eq pk 2.5 cm squared MV Peak Velocity 96.0 cm/s MV Area PHT 3.6 cm squared Mitral E to A Ratio 1.6 TV Peak Velocity 183.0 cm/s TR Peak Velocity 231.0 cm/s TR Peak Gradient 21.3 mmHg TV Peak E Velocity 99.0 cm/s PV Peak Velocity 111.0 cm/s FINDINGS Left Ventricle Normal left ventricular size and systolic function, EF 64%. Mild to moderate concentric left ventricular hypertrophy.Grade III/IV diastolic dysfunction (restrictive filling pattern), severely elevated filling pressures. Right Ventricle The right ventricle is normal in size and function. Right Atrium The right atrium is normal in size. Left Atrium Moderately increased left atrial size. Mitral Valve Mild mitral valve regurgitation. Aortic Valve Thickened aortic valve. Tricuspid Valve Trace tricuspid valve regurgitation. Estimated pulmonary artery peak systolic pressure 24 mmHg Pulmonic Valve Trace pulmonary valve regurgitation. Pericardium Normal pericardium without effusion. Aorta Normal ascending aorta dimension. IVC Inferior vena cava not visualized. CONCLUSIONS Normal left ventricular size and systolic function, EF 64%. Mild to moderate concentric left ventricular hypertrophy.Grade III/IV diastolic dysfunction (restrictive filling pattern), severely elevated filling pressures. Moderately increased left atrial size. Mild mitral valve regurgitation. Thickened aortic valve. Trace tricuspid valve regurgitation. Estimated pulmonary artery peak systolic pressure 24 mmHg. Trace pulmonary valve regurgitation. There is no pericardial effusion. There are no intracardiac masses. Compared to the study from 06/27/2023, there is worsening of the diastolic dysfunction Dr Soledad Adair MD [facility] (Electronically Signed) Final Date: 22 June 2025 10:14 S
== END 2025-06-21 06:12 | disposition home or self-care (01) ==
LOC: RAD 06:11
PROVIDERS: PCP Registered Nurse; Visit Provider Registered Nurse
DX: R06.02 Shortness of breath (principal); I10 Essential (primary) hypertension; R07.9 Chest pain, unspecified; I08.1 Rheumatic disorders of both mitral and tricuspid valves; I35.8 Other nonrheumatic aortic valve disorders; I37.1 Nonrheumatic pulmonary valve insufficiency
CPT/HCPCS: 93306

== ENCOUNTER 2025-07-14 06:14 | Outpatient (CLI) | payer MEDICARE, OTHER, SELFPAY ==
--- NOTE | 2025-07-14 06:30 | US_ITS ---
WS: [id number] RENAL ULTRASOUND HISTORY: N28.89 - Other specified disorders of kidney and ureter COMPARISON: 07/04/2021 TECHNIQUE: 2-D and color Doppler imaging of the kidney submitted. Right kidney: 12.7 cm x 6.6 cm x 5.8 cm. Cortex: 1.9 cm Normal echogenicity with no hydronephrosis or mass. Left kidney: 13.0 cm x 6.7 cm x 6.2 cm. Cortex: 1.9 cm Normal echogenicity with no hydronephrosis or mass. Aorta: Normal. Urinary Bladder: Nondistended. US/US renal BI* [id number] IMPRESSION: Normal renal ultrasound.
== END 2025-07-14 06:15 | disposition home or self-care (01) ==
LOC: RAD 06:15
PROVIDERS: PCP Registered Nurse; Visit Provider Registered Nurse
DX: N28.89 Other specified disorders of kidney and ureter (principal)
CPT/HCPCS: 76770

== ENCOUNTER → 2025-07-26 07:37 | Outpatient (BNVA) | payer MEDICARE, OTHER, SELFPAY | PROVIDERS: PCP Registered Nurse; Visit Provider Podiatrist Foot & Ankle Surgery | DX: E11.42 Type 2 diabetes mellitus with diabetic polyneuropathy (principal); M20.22 Hallux rigidus, left foot; M21.41 Flat foot [pes planus] (acquired), right foot; M21.42 Flat foot [pes planus] (acquired), left foot; L81.9 Disorder of pigmentation, unspecified; I10 Essential (primary) hypertension; Z79.84 Long term (current) use of oral hypoglycemic drugs; Z79.4 Long term (current) use of insulin | CPT/HCPCS: 99213 ==

== ENCOUNTER → 2025-08-19 13:19 | Outpatient (BNVA) | payer MEDICARE, OTHER, SELFPAY | PROVIDERS: PCP Registered Nurse; Referring Provider Registered Nurse; Visit Provider Internal Medicine | DX: R07.9 Chest pain, unspecified (principal) | CPT/HCPCS: 93005 ==

== ENCOUNTER 2025-08-26 08:26 | Outpatient (CLI) | payer MEDICARE, OTHER, SELFPAY ==
[2025-08-26 08:42] VITALS: BMI 34.0
--- NOTE | 2025-08-26 08:45 | ECG_ITS ---
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 Interpretive Statements EXERCISE MIBI EXERCISE DATA: The patient was exercised by Nick protocol. Baseline heart rate was 70 beats per minute. Baseline blood pressure was 151/89 millimeters of mercury. Maximal predicted heart rate was 154 beats per minute. Maximum heart rate achieved was 148, which was 96% of the maximum predicted heart rate. Maximum blood pressure was 228/63 millimeters of mercury. Total exercise time was 7 minutes and 1 seconds. Maximum METs achieved was 10.2. The reason for ending the test was maximal effort achieved. The patient complained of shortness of breath during the stress test, which then resolved at the end of the test. ELECTROCARDIOGRAM: BASELINE: Showed sinus rhythm, normal axis, no significant ST-T changes at the baseline noted. [] EXERCISE: At the peak exercise level, [] No significant ST-T changes suggestive of ischemia noted. [] RECOVERY: During the recovery period, heart rate dropped appropriately. No significant ST-T changes in the recovery suggestive of ischemia noted. [] CONCLUSION: 1. Exercise capacity is good. 2. Heart rate response was appropriate 3. Blood pressure response was hypertensive 4. Symptoms not suggestive of ischemia. 5. Electrocardiogram portion of the stress test was not suggestive of ischemia. 6. Nuclear scan will be documented separately. Electronically Signed On 09-19-2025 15:08:53 SPANISH LITERATURE PROFESSOR by Allen Ye M.D. [email or web address] [id number]
--- NOTE | 2025-08-26 08:45 | NMCV_ITS ---
NM sawyer perf SPECT r/s* [id number] David Menard Age: 65 Gender: M : 1960 Exam Date: 08/26/2025 09:37 Ordering Phys: Allen Ye M.D ([email or web address]) Technologist: EBONY Mccauley Exam Location: [facility] Indications: cp STRESS TEST [facility] IMAGE PROTOCOL Rest/Stress 1 Exercise Day Radiopharmaceutical Dose (mCi) Administration Site Administered by Rest: Tc-99m 10.5 IV EBONY Mccauley Sestamibi Stress:Tc-99m 32.9 IV EBONY Mccauley Sestamibi Rest: 26-Aug-2025 60 Discovery 630 Stress: 26-Aug-2025 15 Discovery 630 Radiopharmaceutical was injected at 85 % maximum heart rate. Images obtained in supine and prone position. SPECT RESULTS Technical Quality: Good Raw Data Analysis: Normal Image Corrections: No attenuation or motion correction applied Summed Stress Score: 0 Summed Rest Score: 0 Summed Difference Score: 0 PERFUSION FINDINGS SPECT images demonstrate homogeneous tracer distribution throughout the myocardium. FUNCTIONAL RESULTS (calculated via Gated SPECT) Stress Image LV EF (%): 66 Stress EDV (mL):134 TID: 1.09 Stress ESV (mL):46 FUNCTIONAL FINDINGS: There is normal left ventricular systolic function. IMPRESSIONS 1. Normal myocardial perfusion imaging with no evidence of ischemia. 2. LV systolic function is normal. Allen Ye MD (Electronically Signed) Final Date: 28 August 2025 12:08 S
[2025-08-26 10:39] VITALS: BP 186/73; PULSE 78
== END 2025-08-26 08:27 | disposition home or self-care (01) ==
LOC: CDL 08:28
PROVIDERS: PCP Registered Nurse; Visit Provider Internal Medicine
DX: R07.9 Chest pain, unspecified (principal); R06.02 Shortness of breath; R93.1 Abnormal findings on diagnostic imaging of heart and coronary circulation
CPT/HCPCS: 36415; 78452; 93017; A9500

== ENCOUNTER → 2025-09-06 11:24 | Outpatient (BNVA) | payer MEDICARE, OTHER, SELFPAY | PROVIDERS: PCP Registered Nurse; Visit Provider Registered Nurse | DX: E11.69 Type 2 diabetes mellitus with other specified complication (principal); Z79.4 Long term (current) use of insulin | CPT/HCPCS: 80053; 80061; 83036; 85025 ==